=== PATIENT | male | born 1980 | race Caucasian/White ===

== ENCOUNTER 2016-08-11 20:13 | Emergency (ER) | payer SELFPAY ==
[2016-08-11] MEDS ORDERED: ONDANSETRON 4 MG TAB.RAPDIS PO ONE (21:21)
--- NOTE | 2016-08-11 21:21 | ER Document Report ---
ED Medical Screen (RME) - General Stated Complaint: FLU LIKE SYMPTOMS Notes: 36 yo male c/o flu like symptoms x 3 days. + n/v/d. no fever. bodyaches, fatigue. not tolerating po today TRAVEL OUTSIDE OF THE [place] IN LAST 30 DAYS: No - Related Data Allergies/Adverse Reactions: No Known Allergies Allergy (Unverified 08/11/16 21:20) Physical Exam - Vital signs Vitals: Temp Pulse Resp BP Pulse Ox 98.1 F 81 16 131/92 H 98 08/11/16 20:20 08/11/16 20:20 08/11/16 20:20 08/11/16 20:20 08/11/16 20:20 Course - Vital Signs Vital signs: Temp Pulse Resp BP Pulse Ox 98.1 F 81 16 131/92 H 98 08/11/16 20:20 08/11/16 20:20 08/11/16 20:20 08/11/16 20:20 08/11/16 20:20
[2016-08-11 21:34] LABS: ABSOLUTE BASOPHILS # (AUTO) 0.1 10^3/uL (0.0-0.2); ABSOLUTE EOSINOPHILS # (AUTO) 0.2 10^3/uL (0.0-0.6); ABSOLUTE LYMPHOCYTES (AUTO) 3.9 10^3/uL (0.5-4.7); ABSOLUTE MONOCYTES (AUTO) 1.3 10^3/uL (0.1-1.4); ABSOLUTE NEUT (AUTO) 5.9 10^3/uL (1.7-8.2); BASOPHILS % (AUTO) 0.7 % (0-2); EOSINOPHILS % (AUTO) 1.8 % (0-6); HEMATOCRIT 43.9 % (37.9-51.0); HEMOGLOBIN 15.3 g/dL (13.5-17.0); LYMPHOCYTES % (AUTO) 34.5 % (13-45); MEAN CORPUSCULAR HEMOGLOBIN 29.9 pg (27.0-33.4); MEAN CORPUSCULAR HGB CONC 34.7 g/dL (32.0-36.0); MEAN CORPUSCULAR VOLUME 86 fl (80-97); MONOCYTES % (AUTO) 11.1 % (3-13); RED CELL DISTRIBUTION WIDTH 13.4 % (11.5-14.0); SEGMENTED NEUTROPHILS % (AUTO) 51.9 % (42-78); WHITE BLOOD COUNT 11.4 10^3/uL (4.0-10.5)
[2016-08-11 21:50] LABS: ALANINE AMINOTRANSFERASE 30 U/L (21-72); ALBUMIN 4.5 g/dL (3.5-5.0); ALKALINE PHOSPHATASE 66 U/L (38-126); ANION GAP 12 (5-19); ASPARTATE AMINO TRANSFERASE 25 U/L (17-59); BLOOD UREA NITROGEN 15 mg/dL (7-20); CALCIUM 9.8 mg/dL (8.4-10.2); CARBON DIOXIDE 26 mmol/L (22-30); CHLORIDE 104 mmol/L (98-107); CREATININE RESULT 0.91 mg/dL (0.52-1.25); GLUCOSE 92 mg/dL (75-110); POTASSIUM 4.2 mmol/L (3.6-5.0); SODIUM 141.7 mmol/L (137-145); TOTAL PROTEIN 7.4 g/dL (6.3-8.2)
--- NOTE | 2016-08-12 00:58 | ER Document Report ---
ED General - General Chief Complaint: Flu Symptoms Stated Complaint: FLU LIKE SYMPTOMS Mode of Arrival: Ambulatory Information source: Patient Notes: Patient presents to the emergency department with complaints of flulike symptoms for the past 2-3 days. Patient reports he was able to eat sushi yesterday. He started vomiting afterwards. Reports diarrhea multiple times. He drank mountain dew today. He reports he's vomited once twice today. Did not receive the flu vaccine. Denies fever. TRAVEL OUTSIDE OF THE [place] IN LAST 30 DAYS: No - HPI Onset: Other - 2- 3 days Onset/Duration: Persistent Quality of pain: Achy Severity: Moderate Pain Level: 3 Associated symptoms: Diarrhea, Nausea, Vomiting Exacerbated by: Denies Relieved by: Denies Similar symptoms previously: No Recently seen / treated by doctor: No - Related Data Allergies/Adverse Reactions: No Known Allergies Allergy (Unverified 08/11/16 21:20) Past Medical History - General Information source: Patient - Social History Smoking Status: Never Smoker Cigarette use (# per day): No Chew tobacco use (# tins/day): No Frequency of alcohol use: None Drug Abuse: None Occupation: [employer] Lives with: Family Family History: Reviewed & Not Pertinent Patient has suicidal ideation: No Patient has homicidal ideation: No - Medical History Medical History: Negative Renal/ Medical History: Denies: Hx Peritoneal Dialysis Surgical Hx: Negative Review of Systems - Review of Systems Notes: Review HPI for review of systems., All other systems negative Physical Exam - Vital signs Vitals: Temp Pulse Resp BP Pulse Ox 98.1 F 81 16 131/92 H 98 08/11/16 20:20 08/11/16 20:20 08/11/16 20:20 08/11/16 20:20 08/11/16 20:20 - Notes Notes: PHYSICAL EXAMINATION: GENERAL: Well-appearing and in no acute distress nontoxic looking HEAD: Atraumatic, normocephalic. EYES: Pupils equal round extraocular movements intact, sclera anicteric, conjunctiva are normal. ENT: nares patent, oropharynx clear without exudates. Moist mucous membranes. NECK: Normal range of motion, supple without lymphadenopathy LUNGS: CTAB and equal. No wheezes rales or rhonchi. HEART: Regular rate and rhythm without murmurs ABDOMEN: Soft, no tenderness. No guarding, no rebound EXTREMITIES: Normal range of motion, no pitting edema. No cyanosis. NEUROLOGICAL: Cranial nerves grossly intact. Normal sensory/motor exams. PSYCH: Normal mood, normal affect. SKIN: Warm, Dry, normal turgor, no rashes or lesions noted Course - Re-evaluation Re-evalutation: 08/12/16 01:15 Mild leukocytosis, no shift. Patient drinking by mouth fluids. Instructed on Zofran. Instructed on importance of follow-up with a primary care provider for recheck. He was also instructed to return to the emergency department if he is unable to follow up with primary care provider. He verbalized understanding. - Vital Signs Vital signs: Temp Pulse Resp BP Pulse Ox 98.2 F 67 16 139/91 H 99 08/12/16 01:11 08/12/16 01:11 08/12/16 01:11 08/12/16 01:11 08/12/16 01:11 - Laboratory Result Diagrams: 08/11/16 21:20 08/11/16 21:20 Laboratory results interpreted by me: 08/11/16 21:20 WBC 11.4 H Discharge - Discharge Clinical Impression: Flu-like symptoms, Elevated blood pressure reading Vomiting Qualifiers: Vomiting type: unspecified Vomiting Intractability: non-intractable Nausea presence: with nausea Qualified Code(s): R11.2 - Nausea with vomiting, unspecified Diarrhea Qualifiers: Diarrhea type: unspecified type Qualified Code(s): R19.7 - Diarrhea, unspecified Condition: Stable Disposition: HOME, SELF-CARE Instructions: Acetaminophen, Antinausea Medication ([facility]), Vomiting ([facility]), Diarrhea, Nonspecific ([facility]), OTC Antidiarrhea Medication ([facility]), Influenza ([facility]) Additional Instructions: *You have been evaluated for flu like symptoms, nausea/vomiting/diarrhea *Take medication as prescribed *Over the counter anti-diarrheal as indicated *Follow up with a primary care provider within one week *Monitor your blood pressure. Your blood pressure was elevated today. This may be because you were anxious, in pain or because you need medication. It is important to follow up with your primary care provider for full evaluation. *Return to ED for worsening condition, changes, needs Forms: Elevated Blood Pressure, Return to Work
[2016-08-12] MEDS ORDERED: ONDANSETRON ODT 4 MG TAB (6 TAB/DSPK) PO PRN (01:09)
[2016-08-12 01:12] VITALS: BP 139/91
== END 2016-08-12 01:21 | disposition home or self-care (01) ==
LOC: ER 20:13
DX: R11.2 Nausea with vomiting, unspecified (principal); R03.0 Elevated blood-pressure reading, without diagnosis of hypertension; R19.7 Diarrhea, unspecified
CPT/HCPCS: 99283; 36415; 85025; 80053; S0119

== ENCOUNTER 2017-01-31 09:33 | Emergency (ER) | payer SELFPAY ==
[2017-01-31] MEDS ORDERED: NORMAL SALINE 1000 ML 1,000 ML IV ONE (09:53)
--- NOTE | 2017-01-31 09:57 | ER Document Report ---
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 He was having subjective fevers and chills yesterday and was told to come to the ER when he saw urgent care earlier today for concern about heat stroke. Patient denies numbness, tingling, blurry vision, focal weakness, chest pain, shortness of breath, syncope, ataxia or abdominal pain. TRAVEL OUTSIDE OF THE [place] IN LAST 30 DAYS: Yes - Related Data Allergies/Adverse Reactions: No Known Allergies Allergy (Verified 01/31/17 09:54) Home Medications: Current Home Medications No Home Medications 01/31/17 [History] Past Medical History - General Information source: Patient - Social History Smoking Status: Never Smoker Frequency of alcohol use: None Drug Abuse: Marijuana Family History: Reviewed & Not Pertinent Renal/ Medical History: Denies: Hx Peritoneal Dialysis Review of Systems - Review of Systems Notes: REVIEW OF SYSTEMS: CONSTITUTIONAL: +fevers, +chills, +body aches EENT: -eye pain, -difficulty swallowing, -nasal congestion CARDIOVASCULAR: -chest pain, -syncope. RESPIRATORY: -cough, -SOB GASTROINTESTINAL: -abdominal pain, - nausea, -vomiting, -diarrhea GENITOURINARY: -dysuria, -hematuria MUSCULOSKELETAL: -back pain, -neck pain SKIN: -rash or skin lesions. HEMATOLOGIC: -easy bruising or bleeding. LYMPHATIC: -swollen, enlarged glands. NEUROLOGICAL: -altered mental status or loss of consciousness, +headache, - neurologic symptoms PSYCHIATRIC: -anxiety, -depression. ALL OTHER SYSTEMS REVIEWED AND NEGATIVE. Physical Exam - Vital signs Vitals: Temp Pulse Resp BP Pulse Ox 98.7 F 79 20 147/101 H 100 01/31/17 09:44 01/31/17 09:44 01/31/17 09:44 01/31/17 09:44 01/31/17 09:44 - Notes Notes: PHYSICAL EXAMINATION: GENERAL: Well-appearing, well-nourished and in no acute distress. HEAD: Atraumatic, normocephalic. EYES: Pupils equal round and reactive to light, extraocular movements intact, sclera anicteric, conjunctiva are normal. ENT: nares patent, oropharynx clear without exudates. Moist mucous membranes. NECK: Normal range of motion, supple without lymphadenopathy LUNGS: Breath sounds clear to auscultation bilaterally and equal. No wheezes rales or rhonchi. HEART: Regular rate and rhythm without murmurs ABDOMEN: Soft, nontender, normoactive bowel sounds. No guarding, no rebound. No masses appreciated. EXTREMITIES: Normal range of motion, no pitting or edema. No cyanosis. NEUROLOGICAL: Cranial nerves grossly intact. Normal speech, normal gait. Normal sensory and motor exams. PSYCH: Normal mood, normal affect. SKIN: Warm, Dry, normal turgor, no rashes or lesions noted. Course - Re-evaluation Re-evalutation: Patient appears well. No neuro symptoms and his temperature is normal. He does not appear to have heat stroke. Labs are unremarkable patient feels much better after a liter of fluids. Instructed him to continue to stay hydrated when working in the heat. Given strict return precautions and he understands. - Vital Signs Vital signs: Temp Pulse Resp BP Pulse Ox 98.7 F 79 20 147/101 H 100 01/31/17 09:44 01/31/17 09:44 01/31/17 09:44 01/31/17 09:44 01/31/17 09:44 Discharge - Discharge Clinical Impression: Myalgia Heat exposure Qualifiers: Encounter type: initial encounter Qualified Code(s): T67.9XXA - Effect of heat and light, unspecified, initial encounter Condition: Stable Additional Instructions: Heat Exhaustion You have had an episode of heat exhaustion. The body overheats when sweating fails to keep the temperature down due to high humidity, exercise, or dehydration. Typical symptoms may include muscle cramps, dizziness, nausea, and even chilling. You should rest and drink plenty of fluids. Do not resume any activities until you feel fully back to normal. To prevent a recurrence, avoid working in the heat. Always drink plenty of fluids when the weather is hot, particularly if you will be exercising. Use extra caution when the humidity is high. If you feel symptoms of heat illness, douse yourself with cold water and rest in the shade. Call the doctor if you develop confusion, repeated vomiting, severe headache, severe muscle spasms, fever, chest pain or shortness of breath. Forms: Elevated Blood Pressure
[2017-01-31 10:16] LABS: ABSOLUTE EOSINOPHILS # (AUTO) 0.1 10^3/uL (0.0-0.6); ABSOLUTE LYMPHOCYTES (AUTO) 1.5 10^3/uL (0.5-4.7); ABSOLUTE MONOCYTES (AUTO) 1.3 10^3/uL (0.1-1.4); ABSOLUTE NEUT (AUTO) 4.1 10^3/uL (1.7-8.2); BASOPHILS % (AUTO) 0.6 % (0-2); HEMATOCRIT 47.5 % (37.9-51.0); HEMOGLOBIN 16.8 g/dL (13.5-17.0); HGB HCT DIFFERENCE 2.9; MEAN CORPUSCULAR HEMOGLOBIN 30.9 pg (27.0-33.4); MEAN CORPUSCULAR HGB CONC 35.4 g/dL (32.0-36.0); MEAN CORPUSCULAR VOLUME 87 fl (80-97); MONOCYTES % (AUTO) 18.8 % (3-13); RED BLOOD COUNT 5.44 10^6/uL (4.35-5.55); RED CELL DISTRIBUTION WIDTH 12.9 % (11.5-14.0); SEGMENTED NEUTROPHILS % (AUTO) 58.6 % (42-78); WHITE BLOOD COUNT 6.9 10^3/uL (4.0-10.5)
[2017-01-31 10:29] LABS: ALANINE AMINOTRANSFERASE 38 U/L (21-72); ALBUMIN 4.5 g/dL (3.5-5.0); ALKALINE PHOSPHATASE 64 U/L (38-126); ANION GAP 10 (5-19); ASPARTATE AMINO TRANSFERASE 31 U/L (17-59); BILIRUBIN,DIRECT 0.3 mg/dL (0.0-0.4); BILIRUBIN,TOTAL 1.2 mg/dL (0.2-1.3); BLOOD UREA NITROGEN 14 mg/dL (7-20); CALCIUM 9.5 mg/dL (8.4-10.2); CARBON DIOXIDE 27 mmol/L (22-30); CHLORIDE 100 mmol/L (98-107); CREATINE KINASE 109 U/L (55-170); GLUCOSE 94 mg/dL (75-110); POTASSIUM 4.7 mmol/L (3.6-5.0); SODIUM 137.3 mmol/L (137-145); TOTAL PROTEIN 7.6 g/dL (6.3-8.2)
[2017-01-31 11:03] VITALS: BP 122/83
== END 2017-01-31 11:00 | disposition home or self-care (01) ==
LOC: ER 09:33
DX: R53.1 Weakness (principal); M79.1 Myalgia; R50.9 Fever, unspecified; T67.9XXA Effect of heat and light, unspecified, initial encounter; X30.XXXA Exposure to excessive natural heat, initial encounter; Y92.009 Unspecified place in unspecified non-institutional (private) residence as the place of occurrence of the external cause; Y99.0 Civilian activity done for income or pay
CPT/HCPCS: 99284; 96360; 36415; 82550; 85025; 80053; J7030

== ENCOUNTER 2017-09-10 14:23 | Emergency (ER) | payer OTHER ==
[2017-09-10] MEDS ORDERED: IBUPROFEN 800 MG TABLET PO ONE (14:53)
[2017-09-10] MEDS ORDERED: OXYCODONE-ACETAMINOPHEN 5-325 MG TABLET PO ONE (14:53)
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
[2017-09-10] MEDS ORDERED: DIPH/PERTUSS(ACELL)/TETANUS VAC/PF 0.5 ML SYR (>=10YO) IM ONE (14:54)
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
[2017-09-10 16:45] VITALS: BP 130/85
== END 2017-09-10 16:45 | disposition home or self-care (01) ==
LOC: ER 14:23
DX: S92.241A Displaced fracture of medial cuneiform of right foot, initial encounter for closed fracture (principal); S60.512A Abrasion of left hand, initial encounter; M25.561 Pain in right knee; V43.52XA Car driver injured in collision with other type car in traffic accident, initial encounter
CPT/HCPCS: 90471; 90715; 99283

== ENCOUNTER 2017-11-16 12:58 | Emergency (ER) | payer OTHER ==
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
--- NOTE | 2017-11-16 16:06 | RADIOLOGY REPORT (SQ) ---
EXAM DESCRIPTION: MRI HEAD WITHOUT COMPLETED DATE/TIME: 11/16/2017 3:49 pm REASON FOR STUDY: rt facial droop/lid lag, possible hi's palsy COMPARISON: None. TECHNIQUE: Multiplanar imaging includes non-contrasted T1, T2, FLAIR, and diffusion with ADC map seq uences. Images stored on PACS. LIMITATIONS: None. FINDINGS: ANATOMY: No anomalies. Normal vascular flow voids. Pituitary fossa normal. CSF SPACES: Normal in size and contour. No hemorrhage. CEREBRUM: Sulci and gyri normal in size and contour. Normal white matter signal on FLAIR imaging. No evidence of hemorrhage, mass, or extraaxial fluid collection. POSTERIOR FOSSA: No signal alteration. No hemorrhage. No edema, masses or mass effect. Internal noah tory canals, cerebello-pontine angles, mastoids normal. DIFFUSION IMAGING: Negative for acute or sub-acute infarction. ORBITS: No masses. Globes normal. PARANASAL SINUSES: Mucosal nodules in the left maxillary sinus. OTHER: No other significant finding. IMPRESSION: NORMAL MRI OF THE BRAIN WITHOUT INTRAVENOUS GADOLINIUM CONTRAST. LEFT MAXILLARY SINUS DISEASE. EVIDENCE OF ACUTE STROKE: NO. TECHNICAL DOCUMENTATION: JOB ID: [id number] [employer]- All Rights Reserved Reading location - IP/workstation name: [email or web address]
[2017-11-16 16:44] VITALS: BP 151/101
== END 2017-11-16 16:45 | disposition home or self-care (01) ==
LOC: ER 12:58
DX: G51.0 Bell's palsy (principal); Z87.891 Personal history of nicotine dependence
CPT/HCPCS: 70551; 99285